=== PATIENT | male | born 1965 | race Caucasian/White ===

== ENCOUNTER 2022-12-15 11:21 | Day surgery (SDC) | payer BC ==
[2022-12-15] MEDS: Lactated Ringers 1,000 ML IV SCH (11:34)
[2022-12-15] MEDS ORDERED: fentaNYL 100 MCG/2 ML SDV ONE (12:50)
[2022-12-15] MEDS ORDERED: Propofol 200 MG/20 ML SDV ONE (12:50)
[2022-12-15] MEDS ORDERED: Midazolam 1 MG/ML 2 ML SDV ONE (12:50)
[2022-12-15 13:57] VITALS: BP 107/67; PULSE 59
== END 2022-12-15 14:18 | disposition home or self-care (01) ==
LOC: VM.SDS 11:21
PROVIDERS: ATTEND Family Medicine
DX: D12.3 Benign neoplasm of transverse colon (principal); D12.0 Benign neoplasm of cecum; D12.2 Benign neoplasm of ascending colon; D12.4 Benign neoplasm of descending colon; R00.1 Bradycardia, unspecified; I65.23 Occlusion and stenosis of bilateral carotid arteries; E78.00 Pure hypercholesterolemia, unspecified; R73.9 Hyperglycemia, unspecified; H91.90 Unspecified hearing loss, unspecified ear; E66.9 Obesity, unspecified; E55.9 Vitamin D deficiency, unspecified; K21.9 Gastro-esophageal reflux disease without esophagitis; F41.9 Anxiety disorder, unspecified; E79.0 Hyperuricemia without signs of inflammatory arthritis and tophaceous disease; G47.33 Obstructive sleep apnea (adult) (pediatric); Z90.79 Acquired absence of other genital organ(s); Z79.899 Other long term (current) drug therapy; Z86.010 Personal history of colon polyps; Z68.33 Body mass index [BMI] 33.0-33.9, adult
CPT/HCPCS: 00812; J2250; J2704; J3010; J7120